=== PATIENT | male | born 1975 | race African-American/Black ===

== ENCOUNTER 2017-01-04 22:37 | Emergency (ER) | payer MEDICAID ==
[~2017-01-04] VITALS: Ht 177.8 cm; Wt 75.0 kg
[2017-01-05] MEDS ORDERED: KETOROLAC 60MG/2ML VIAL IM ONE
[2017-01-05 01:25] VITALS: BP 112/76
[2017-01-05 01:33] LABS: CHLORIDE 107 mEq/L (98-107); INDEX HEMOLYSI 1 (1-3); INDEX ICTERIC 1 (1-4); INDEX LIPEMIC 1 (1-3)
[2017-01-05 01:39] LABS: ANION GAP 13; CALCIUM 8.9 mg/dL (8.5-10.1); CARBON DIOXIDE 27 mEq/L (21-32); UREA NITROGEN BLOOD 12 mg/dL (7-21); eGFR > 60 mL/min (>60)
== END 2017-01-05 03:10 | disposition home or self-care (01) ==
LOC: ER 22:37
DX: M25.521 Pain in right elbow (principal); R51 Headache; F12.10 Cannabis abuse, uncomplicated; Y04.0XXA Assault by unarmed brawl or fight, initial encounter; W03.XXXA Other fall on same level due to collision with another person, initial encounter; Y92.018 Other place in single-family (private) house as the place of occurrence of the external cause
CPT/HCPCS: 36415; 70486; 73080; 80048; 96372; 99285; J1885; Z7610